=== PATIENT | female | born 1955 | race Caucasian/White ===

== ENCOUNTER 2022-07-31 12:26 | Inpatient (IN) | payer OTHER ==
[2022-07-31 12:51] VITALS: BMI 25.4
[2022-07-31] MEDS ORDERED: BENZONATATE 200 MG CAPSULE PO PRN (14:09)
[2022-07-31] MEDS ORDERED: ONDANSETRON *ODT* 4 MG TABLET SL PRN (14:09)
[2022-07-31] MEDS ORDERED: BENZOCAINE/MENTHOL (CHLORASEPTIC ) LOZENGE MM PRN (14:09)
[2022-07-31] MEDS ORDERED: IBUPROFEN 400 MG TABLET (FP) PO PRN (14:09)
[2022-07-31] MEDS ORDERED: COLLOIDAL OATMEAL 1 BAR EACH TP PRN (14:09)
[2022-07-31] MEDS ORDERED: DICYCLOMINE HCL 10 MG CAPSULE PO PRN (14:09)
[2022-07-31] MEDS ORDERED: ACETAMINOPHEN 325 MG TABLET (FP) PO PRN (14:09)
[2022-07-31] MEDS ORDERED: MAG HYDROX/AL HYDROX/SIMETH 30 ML UNIT-DOSE CUP PO PRN (14:09)
[2022-07-31] MEDS ORDERED: NALOXONE HCL (KLOXXADO) 8 MG SPRAY NS PRN (14:09)
[2022-07-31] MEDS ORDERED: BISMUTH SUBSALICYLATE 524 MG/30 ML PO PRN (14:09)
[2022-07-31] MEDS ORDERED: LOPERAMIDE HCL 2 MG CAPSULE PO PRN (14:09)
[2022-07-31] MEDS ORDERED: MAGNESIUM HYDROX 2400MG/30ML ORAL SUSPENSION 30 ML CUP PO PRN (14:09)
[2022-07-31] MEDS ORDERED: NICOTINE 10 MG CARTRIDGE (INHALER) IH PRN (14:09)
[2022-07-31] MEDS ORDERED: LORazepam 1 MG TABLET PO PRN (14:09)
[2022-07-31] MEDS ORDERED: POLYETHYLENE GLYCOL (HEALTHYLAX) 3350 17 GM PACKET PO PRN (14:09)
[2022-07-31] MEDS ORDERED: guaiFENesin 600 MG TABLET.ER (FP) PO PRN (14:09)
[2022-07-31] MEDS ORDERED: NALOXONE HCL 0.4 MG/ML VIAL IM PRN (14:09)
[2022-07-31] MEDS ORDERED: AMMONIUM LACTATE 12% LOTION 225 GM BOTTLE TP PRN (14:09)
[2022-07-31] MEDS ORDERED: IBUPROFEN 600 MG TABLET (FP) PO PRN (14:09)
[2022-07-31] MEDS ORDERED: LORazepam 2 MG TABLET ONE (15:02)
[2022-07-31] MEDS ORDERED: ONDANSETRON *ODT* 4 MG TABLET ONE (15:02)
[2022-07-31] MEDS ORDERED: LORazepam 2 MG TABLET PO ONE ×2 (15:15→19:00)
[2022-07-31] MEDS ORDERED: NICOTINE 14 MG/24 HOURS TOPICAL PATCH TD ONE (15:47)
[2022-07-31] MEDS: NICOTINE 14 MG/24 HOURS TOPICAL PATCH TD SCH (15:49)
[2022-07-31] MEDS ORDERED: TUBERCULIN PPD 5 TU/0.1ML VIAL ID ONE (17:36)
[2022-07-31] MEDS ORDERED: MELATONIN 5 MG TABLETS PO SCH (22:00)
[2022-07-31] MEDS: SUVOREXANT 5 MG TABLET PO PRN (22:10)
[2022-07-31] MEDS: THIAMINE HCL 100 MG TABLET (FP) PO SCH (22:10)
[2022-07-31] MEDS: LORazepam 2 MG TABLET PO SCH (22:11)
[2022-08-01] MEDS: LORazepam 2 MG TABLET PO SCH ×4 (05:16→22:32)
[2022-08-01] MEDS: METHOCARBAMOL 500 MG TABLET PO PRN (05:18)
[2022-08-01] MEDS: PRENATAL VITAMINS W/ FOLIC ACID TABLET (FP) PO SCH (10:06)
[2022-08-01] MEDS: NICOTINE 14 MG/24 HOURS TOPICAL PATCH TD SCH (10:06)
[2022-08-01 10:41] LABS: HEMATOCRIT 36.2 % (32.4-45.2); HEMOGLOBIN 12.8 GM/dL (10.7-15.3); MCH 35.4 pg (25.7-33.7); MCHC 35.3 g/dl (32.0-36.0); MEAN CELL VOLUME 100.2 fl (80-96); PLATELET COUNT 143 10^3/uL (134-434); RBC 3.61 M/mm3 (3.60-5.2); WHITE BLOOD COUNT 5.2 K/mm3 (4.0-10.0)
[2022-08-01] MEDS ORDERED: cloNIDine HCL 0.1 MG TABLET PO ONE (10:43)
[2022-08-01 10:47] LABS: POTASSIUM 3.4 mmol/L (3.5-5.1)
[2022-08-01 10:49] LABS: ALBUMIN 3.7 g/dl (3.4-5.0); BLOOD UREA NITROGEN 7.7 mg/dL (7-18)
[2022-08-01 10:53] LABS: BILIRUBIN,TOTAL 1.3 mg/dL (0.2-1); CREATININE 0.6 mg/dL (0.55-1.3); TOT PROT 7.6 g/dl (6.4-8.2)
[2022-08-01] MEDS ORDERED: POTASSIUM CHLORIDE ORAL LIQUID 20 MEQ/15 ML PO ONE (14:59)
[2022-08-01] MEDS: THIAMINE HCL 100 MG TABLET (FP) PO SCH (22:31)
[2022-08-01] MEDS: SUVOREXANT 5 MG TABLET PO PRN (22:35)
[2022-08-02] MEDS: LORazepam 1 MG TABLET PO SCH ×4 (05:33→22:21)
[2022-08-02] MEDS: NICOTINE 14 MG/24 HOURS TOPICAL PATCH TD SCH (10:06)
[2022-08-02] MEDS: PRENATAL VITAMINS W/ FOLIC ACID TABLET (FP) PO SCH (10:06)
[2022-08-02 11:33] LABS: POTASSIUM 3.4 mmol/L (3.5-5.1)
[2022-08-02 11:36] LABS: ALBUMIN 3.9 g/dl (3.4-5.0); BLOOD UREA NITROGEN 9.4 mg/dL (7-18); CALCIUM 10.5 mg/dL (8.5-10.1)
[2022-08-02 11:38] LABS: CREATININE 0.6 mg/dL (0.55-1.3)
[2022-08-02 11:40] LABS: BILIRUBIN,TOTAL 1.1 mg/dL (0.2-1)
[2022-08-02] MEDS ORDERED: POTASSIUM CHLORIDE TABS 20 MEQ TABLET.ER (FP) PO ONE (14:34)
[2022-08-02] MEDS: METHOCARBAMOL 500 MG TABLET PO PRN (20:27)
[2022-08-02] MEDS: THIAMINE HCL 100 MG TABLET (FP) PO SCH (22:21)
[2022-08-02] MEDS: SUVOREXANT 5 MG TABLET PO PRN (22:24)
[2022-08-03] MEDS ORDERED: LORazepam 0.5 MG TABLET PO PRN
[2022-08-03] MEDS ORDERED: LORazepam 0.5 MG TABLET PO SCH (05:00)
[2022-08-03] MEDS: METHOCARBAMOL 500 MG TABLET PO PRN (05:52)
[2022-08-03 06:09] VITALS: RESP 16; TEMP 97.6
[2022-08-03 07:06] VITALS: BP 155/103; PULSE 95
[2022-08-04] MEDS ORDERED: LORazepam 0.5 MG TABLET PO ONE (05:00)
== END 2022-08-03 09:14 | disposition home or self-care (01) | DRG 897 ==
LOC: YASAS 12:26 → Y6N 14:31
PROVIDERS: ADMIT Allergy & Immunology; ATTEND Surgery
PROC: HZ2ZZZZ Detoxification Services for Substance Abuse Treatment (ICD-10-PCS; principal; 2022-07-31)
DX: F10.230 Alcohol dependence with withdrawal, uncomplicated (principal); F17.210 Nicotine dependence, cigarettes, uncomplicated; F10.982 Alcohol use, unspecified with alcohol-induced sleep disorder; F41.8 Other specified anxiety disorders; I10 Essential (primary) hypertension; E78.5 Hyperlipidemia, unspecified
CPT/HCPCS: 36415; 80053; 85027; 86780; C9803-CS; Q0162; U0003; U0005